=== PATIENT | male | born 1965 | race Caucasian/White ===

== ENCOUNTER 2019-10-23 09:19 | Emergency (ER) | payer BC ==
[2019-10-23 09:33] VITALS: BP 150/101; PULSE 71
--- NOTE | 2019-10-23 10:31 | EDM.PDOC ---
<QuincyAngelica - Last Filed: 10/23/19 10:22> ED HPI GENERAL MEDICAL PROBLEM - General Chief Complaint: ENT Problem Stated Complaint: NOSE BLEED Time Seen by Provider: 10/23/19 10:13 Source of Information: Reports: Patient History Limitations: Reports: No Limitations ( ) - History of Present Illness INITIAL COMMENTS - FREE TEXT/NARRATIVE: Patient is a pleasant 54-year-old male that is on long-term anti-coagulant therapy for previous stroke 15 years ago and presents to the ED today for bilateral nose bleed that started this morning at 0810. He reports he was at work when he thought his nose running so he wiped it on his arm because he had gloves on and saw it was blood. Then the blood started "gushing" out of his nose. He reports it was bright red. He reports he pinched his nose and this would stop the blood from coming out, but then he could feel it draining down the back of his throat. He notes that if he let go of his nose the blood would pour out. He states that the bleeding ceased around 0930 while in the ED. The nurse had him blow his nose and when he did he reports there were multiple dark clots. He denies any bleeding since 0930. He states he just feels "foggy" or that something is different, but he can't explain it very well. He denies chest pain, shortness of breath, dizziness, and lightheadedness. Onset: Sudden Onset Date: 10/23/19 Onset Time: 08:10 Duration: Improving - Related Data Allergies Allergy/AdvReac Type Severity Reaction Status Date / Time No Known Allergies Allergy Verified 10/23/19 09:33 Home Meds: Home Meds Rivaroxaban [Xarelto] 10 mg PO DAILY 07/05/14 [History] Insulin Aspart [NovoLOG] 20 unit PO DAILY 06/26/18 [History] Insulin Lispro [Humalog] 0 unit INJECT ASDIRECTED 06/26/18 [History] LORazepam [Ativan] 0.5 mg PO BEDTIME 06/26/18 [History] Lisinopril/Hydrochlorothiazide [Lisinopril-Hctz 20-12.5 mg Tab] 1 tab PO DAILY 06/26/18 [History] atorvaSTATin [Lipitor] 10 mg PO BEDTIME 06/26/18 [History] Aspirin [Halfprin] 81 mg PO DAILY 10/23/19 [History] Past Medical History Cardiovascular History: Reports: High Cholesterol, Hypertension Musculoskeletal History: Reports: Other (See Below) Other Musculoskeletal History: back surgery Neurological History: Reports: CVA Other Neuro History: right side weakness Endocrine/Metabolic History: Reports: Diabetes, Type II - Past Surgical History Cardiovascular Surgical History: Reports: Coronary Artery Bypass Musculoskeletal Surgical History: Reports: Shoulder Surgery Social & Family History - Tobacco Use Smoking Status *Q: Never Smoker - Caffeine Use Caffeine Use: Reports: Coffee - Recreational Drug Use Recreational Drug Use: No ED ROS ENT - Review of Systems Review Of Systems: See Below Constitutional: Reports: No Symptoms. Denies: Fever, Chills HEENT: Reports: Nosebleed (has stopped now but was bleeding from both nares for 90 minutes). Denies: Throat Pain Respiratory: Reports: No Symptoms. Denies: Shortness of Breath, Cough Cardiovascular: Reports: No Symptoms. Denies: Chest Pain, Lightheadedness, Syncope GI/Abdominal: Reports: No Symptoms. Denies: Abdominal Pain, Nausea Skin: Reports: No Symptoms. Denies: Pallor Neurological: Reports: Other (Feels "foggy"). Denies: Headache, Numbness, Syncope, Tingling, Weakness Psychiatric: Reports: No Symptoms Hematologic/Lymphatic: Reports: Easy Bleeding (due to being on long-term Xarelto and Aspirin) ED EXAM, ENT - Physical Exam Exam: See Below Exam Limited By: No Limitations General Appearance: Alert, WD/WN, No Apparent Distress Nose: Active Bleeding (left nare- cauterized with silver nitrate stick), Dried Blood. No: Nasal Tenderness, Septal Hematoma Mouth/Throat: Normal Inspection, Normal Gums, Normal Lips, Other (trace amount of blood in back of throat) Head: Atraumatic, Normocephalic Respiratory/Chest: No Respiratory Distress, Lungs Clear, Normal Breath Sounds, No Accessory Muscle Use, Chest Non-Tender Cardiovascular: Normal Peripheral Pulses, Regular Rate, Rhythm, No Edema, No Murmur GI/Abdominal: Normal Bowel Sounds, Soft, Non-Tender, No Organomegaly, No Distention, No Mass Neurological: Alert, Oriented, Normal Cognition, No Motor/Sensory Deficits Psychiatric: Normal Affect, Normal Mood Skin: Warm, Dry, Intact, Normal Color, No Rash Course - Vital Signs Last Recorded V/S: Last Vital Signs Temp 96.7 F L 10/23/19 09:31 Pulse 71 10/23/19 09:31 Resp 18 10/23/19 09:31 BP 150/101 H 10/23/19 09:31 Pulse Ox 94 L 10/23/19 09:31 Departure - Departure Disposition: Home, Self-Care 01 Clinical Impression: Epistaxis - Discharge Information Referrals: Mishel Vicente NP [Primary Care Provider] - Forms: ED Department Discharge, ED Return to Work/School Form Additional Instructions: Do not take your aspirin for 5 days. Put antibiotic ointment or petroleum jelly in each nostril a couple times per day to keep your nose moist. Please return if you are worse. Sepsis Event Note - Evaluation Sepsis Screening Result: No Definite Risk - Focused Exam Vital Signs: Vital Signs Temp Pulse Resp BP Pulse Ox 10/23/19 09:31 96.7 F L 71 18 150/101 H 94 L Date Exam was Performed: 10/23/19 Time Exam was Performed: 10:22 <Duncan Saha - Last Filed: 10/23/19 10:47> ED ENT PROCEDURES - Epistaxis Procedure Indication: Epistaxis Recent anticoagulants/antiplatlets: Yes Uncontrolled HTN: No Recent septal/nasal surgery: No Site of bleeding: Left Nare Clearing of clots: Patient Blew Nose Chemical cautery: Silver Nitrate Topical Complications: No Course - Re-Assessments/Exams Free Text/Narrative Re-Assessment/Exam: 10/23/19 10:44 I examined the patient myself and I agree with Angelica's assessment and plan. I used some silver nitrate to stop a very small bleeder. The patient is on xarelto and aspirin. I will have him hold the aspirin for 5 days. I put some antibiotic ointment in each nostril. Departure - Departure Time of Disposition: 10:50 Condition: Good - Discharge Information *PRESCRIPTION DRUG MONITORING PROGRAM REVIEWED*: Not Applicable *COPY OF PRESCRIPTION DRUG MONITORING REPORT IN PATIENT QUITA: Not Applicable Sepsis Event Note - Focused Exam Date Exam was Performed: 10/23/19 Time Exam was Performed: 10:44
== END 2019-10-23 10:58 | disposition home or self-care (01) ==
LOC: JD.ED 09:19
DX: R04.0 Epistaxis (principal); E78.00 Pure hypercholesterolemia, unspecified; I10 Essential (primary) hypertension; E11.9 Type 2 diabetes mellitus without complications; Z86.73 Personal history of transient ischemic attack (TIA), and cerebral infarction without residual deficits; Z79.01 Long term (current) use of anticoagulants; Z79.4 Long term (current) use of insulin; Z79.899 Other long term (current) drug therapy; Z79.82 Long term (current) use of aspirin
CPT/HCPCS: 30901; 99282; 99283-25

== ENCOUNTER 2019-12-01 09:39 | Emergency (ER) | payer BC ==
--- NOTE | 2019-12-01 09:58 | EDM.PDOC ---
ED HPI GENERAL MEDICAL PROBLEM - General Chief Complaint: Upper Extremity Injury/Pain Stated Complaint: LT HAND INJURY Time Seen by Provider: 12/01/19 09:48 - History of Present Illness INITIAL COMMENTS - FREE TEXT/NARRATIVE: 54-year-old male presents the emergency room with a left hand injury. Yesterday evening the patient was moving a heavy bottle of water that was above his head and he lost control of it in his left hand was supporting the water bottle but landed on a irregular plastic surface with the weight of his hand and a heavy water bottle. He is developed significant discomfort in his hand mostly over the index and middle rays at the level of the metacarpals. He has some mild tingling in his fingers and this seems to involve all digits. The patient has tried Tylenol and ibuprofen without any benefit. I have cautioned the patient about using ibuprofen at his age and with his underlying heart disease and he is on Xarelto. Patient denies any other injury with this unfortunate mishap Left Hand Pain Score (Numeric/FACES): 8 - Related Data Allergies Allergy/AdvReac Type Severity Reaction Status Date / Time No Known Allergies Allergy Verified 12/01/19 09:49 Home Meds: Home Meds Rivaroxaban [Xarelto] 10 mg PO DAILY 07/05/14 [History] Insulin Aspart [NovoLOG] 20 unit PO DAILY 06/26/18 [History] Insulin Lispro [Humalog] 0 unit INJECT ASDIRECTED 06/26/18 [History] LORazepam [Ativan] 0.5 mg PO BEDTIME 06/26/18 [History] Lisinopril/Hydrochlorothiazide [Lisinopril-Hctz 20-12.5 mg Tab] 1 tab PO DAILY 06/26/18 [History] atorvaSTATin [Lipitor] 10 mg PO BEDTIME 06/26/18 [History] Aspirin [Halfprin] 81 mg PO DAILY 10/23/19 [History] Acetaminophen/HYDROcodone [Stringer 325-5 MG] 1 - 2 tab PO Q6H PRN #15 tablet 11/30 [Rx] Past Medical History Cardiovascular History: Reports: High Cholesterol, Hypertension Musculoskeletal History: Reports: Other (See Below) Other Musculoskeletal History: back surgery Neurological History: Reports: CVA Other Neuro History: right side weakness Endocrine/Metabolic History: Reports: Diabetes, Type II - Past Surgical History Cardiovascular Surgical History: Reports: Coronary Artery Bypass Musculoskeletal Surgical History: Reports: Shoulder Surgery Social & Family History - Caffeine Use Caffeine Use: Reports: Coffee Review of Systems - Review of Systems Review Of Systems: See Below Constitutional: Reports: No Symptoms Respiratory: Reports: No Symptoms Cardiovascular: Reports: No Symptoms GI/Abdominal: Reports: No Symptoms Genitourinary: Reports: No Symptoms Musculoskeletal: Reports: Hand Pain Neurological: Reports: Other (Tingling in his digits of the left hand) ED EXAM, GENERAL - Physical Exam Exam: See Below Exam Limited By: No Limitations General Appearance: Alert, No Apparent Distress Head: Atraumatic, Normocephalic Neck: Normal Inspection, Supple, Non-Tender, Full Range of Motion. No: Lymphadenopathy (L), Lymphadenopathy (R) Respiratory/Chest: No Respiratory Distress, Lungs Clear, Normal Breath Sounds Cardiovascular: Regular Rate, Rhythm, No Edema, No Murmur Extremities: Other (Patient is left hand shows no obvious deformity. He has some swelling over the metacarpal phalangeal joints of the index and middle rays and to a lesser degree the fourth ray. Patient has difficulty flexing or extending his digits due to discomfort and pain. Patient does not seem to have a lot of discomfort with palpation of the proximal hand and wrist patient has intact supination and pronation of the forearm and the patient can fully extend his arm at the level of the elbow. The patient has good flexion extension of his wrist but he does get some discomfort into his digits. Palpation of the digits show some minimal swelling especially in the proximal area. Neurovascular status is intact however he has this vague sensation of partial numbness in all 5 digits capillary refill is normal.) Course - Vital Signs Last Recorded V/S: Last Vital Signs Temp 36.6 C 12/01/19 09:47 Pulse 78 12/01/19 09:47 Resp 18 12/01/19 09:47 BP 134/95 H 12/01/19 09:47 Pulse Ox 98 12/01/19 09:47 - Orders/Labs/Meds Orders: Active Orders 24 hr Category Date Time Status Hand Comp Min 3V Lt [CR] Stat Exams 12/01/19 09:58 Taken - Re-Assessments/Exams Free Text/Narrative Re-Assessment/Exam: 12/01/19 10:20 X-ray examination of the left hand is negative for acute fracture dislocations has mild soft tissue swelling in the affected areas. He has some degenerative changes noted throughout. Discussed treatment plans with the patient we will not splint him at this point. He is to use Tylenol or Stringer as needed for pain. He should seek reevaluation in 48 hours if not improving and certainly sooner if getting worse. With the pain the patient is having at this point is possible to exclude a tendon injury however the patient seems to have intact flexion and extension of his digits at the metacarpophalangeal joints but this is limited due to discomfort further testing is not practical at this point. Departure - Departure Time of Disposition: 10:32 Disposition: Home, Self-Care 01 Clinical Impression: Contusion of left hand including fingers - Discharge Information Prescriptions: Acetaminophen/HYDROcodone [Stringer 325-5 MG] 1 - 2 tab PO Q6H PRN #15 tablet PRN Reason: Pain Referrals: Mishel Vicente NP [Primary Care Provider] - Forms: ED Department Discharge Additional Instructions: Turn to the emergency room with any questions problems or worsening symptoms. Follow-up with your regular provider in 2 to 3 days for reevaluation. Use Tylenol as needed for the discomfort. Do not exceed 3000 to 4000 mg in a 24-hour period. The pain medication the Stringer you were given each tablet contains 325 mg of Tylenol and this needs to be factored in. The Stringer only as needed for pain. Allow 12 hours after using this medication before driving or returning to work. Sepsis Event Note - Focused Exam Vital Signs: Vital Signs Temp Pulse Resp BP Pulse Ox 12/01/19 09:47 36.6 C 78 18 134/95 H 98 Date Exam was Performed: 12/01/19 Time Exam was Performed: 10:19 - My Orders Last 24 Hours: My Active Orders 12/01/19 09:58 Hand Comp Min 3V Lt [CR] Stat - Assessment/Plan Last 24 Hours: My Active Orders 12/01/19 09:58 Hand Comp Min 3V Lt [CR] Stat
[2019-12-01] MEDS ORDERED: Acetaminophen/HYDROcodone 325-5 MG Tab PO ONE (10:37)
[2019-12-01 11:07] VITALS: BP 131/85; PULSE 64
--- NOTE | 2019-12-02 07:38 | CR ---
Left hand: 4 views of the left hand were obtained. Comparison: No prior hand exam is available. Joint spaces are preserved. Small bony density is noted off the navicular bone compatible with old injury. Vascular calcification is noted within the wrist. No acute fracture or other bony abnormality is appreciated. Impression: 1. Vascular calcification within the wrist. Old injury within the wrist. 2. Left hand exam is otherwise unremarkable. Diagnostic code #2 This report was dictated in MDT
== END 2019-12-01 11:03 | disposition home or self-care (01) ==
LOC: JD.ED 09:39
DX: S60.222A Contusion of left hand, initial encounter (principal); I10 Essential (primary) hypertension; E11.9 Type 2 diabetes mellitus without complications; E78.00 Pure hypercholesterolemia, unspecified; Z86.73 Personal history of transient ischemic attack (TIA), and cerebral infarction without residual deficits; Z79.82 Long term (current) use of aspirin; Z79.899 Other long term (current) drug therapy; Z79.4 Long term (current) use of insulin; Z79.01 Long term (current) use of anticoagulants; W20.8XXA Other cause of strike by thrown, projected or falling object, initial encounter
CPT/HCPCS: 73130; 99283; A9270

== ENCOUNTER 2022-09-06 14:40 | Emergency (ER) | payer BC, OTHER ==
[2022-09-06] MEDS ORDERED: HYDROmorphone 1 MG/ML Syringe IM ONE (16:15)
[2022-09-06 17:51] VITALS: BP 130/75; PULSE 89
== END 2022-09-06 17:35 | disposition home or self-care (01) ==
LOC: JD.ED 14:40
DX: S46.001A Unspecified injury of muscle(s) and tendon(s) of the rotator cuff of right shoulder, initial encounter (principal); E78.00 Pure hypercholesterolemia, unspecified; I10 Essential (primary) hypertension; E11.9 Type 2 diabetes mellitus without complications; Z86.73 Personal history of transient ischemic attack (TIA), and cerebral infarction without residual deficits; Z95.1 Presence of aortocoronary bypass graft; Z79.82 Long term (current) use of aspirin; Z79.01 Long term (current) use of anticoagulants; Z79.4 Long term (current) use of insulin; Z79.899 Other long term (current) drug therapy; W01.0XXA Fall on same level from slipping, tripping and stumbling without subsequent striking against object, initial encounter; Y99.0 Civilian activity done for income or pay
CPT/HCPCS: 73030-26-RT; 73030-RT; 96372; 99283; J1170

== ENCOUNTER 2022-11-30 17:23 | Emergency (ER) | payer BC ==
[2022-11-30 17:37] VITALS: BP 148/83; PULSE 96
[2022-11-30 19:11] LABS: CORONAVIRUS COVID-19 NAA NEGATIVE (NEGATIVE)
== END 2022-11-30 19:45 | disposition home or self-care (01) ==
LOC: JD.ED 17:23
DX: R07.89 Other chest pain (principal); E78.00 Pure hypercholesterolemia, unspecified; I10 Essential (primary) hypertension; E11.9 Type 2 diabetes mellitus without complications; Z86.73 Personal history of transient ischemic attack (TIA), and cerebral infarction without residual deficits; Z79.01 Long term (current) use of anticoagulants; Z79.82 Long term (current) use of aspirin; Z79.4 Long term (current) use of insulin; Z79.899 Other long term (current) drug therapy; Z20.822 Contact with and (suspected) exposure to COVID-19
CPT/HCPCS: 0240U; 36415; 71045; 80053; 83880; 84484; 85025; 85379; 93005; 99285; 93010; 99283

== ENCOUNTER 2024-02-01 08:56 | Emergency (ER) | payer BC ==
[2024-02-01 09:41] LABS: APPEARANCE,URINE CLOUDY (Clear); BILIRUBIN,URINE 1+ (Negative); COLOR,URINE RED (Yellow); GLUCOSE,URINE NEGATIVE (Negative); KETONES,URINE TRACE (Negative); LEUKOCYTE ESTERASE,URINE TRACE (Negative); NITRITE,URINE NEGATIVE (Negative); OCCULT BLOOD,URINE 3+ (Negative); PROTEIN,URINE 3+ (Negative)
[2024-02-01 09:50] LABS: BACTERIA,URINE FEW /hpf (FEW); EPITHELIAL CELLS,URINE 0-5 /hpf (0-5); RBC,URINE >100 /hpf (0-5)
[2024-02-01 09:51] LABS: AMPHETAMINES SCREEN, URINE NEGATIVE (CUTOFF=500); BARBITURATE SCREEN,URINE NEGATIVE (CUTOFF=200); BENZODIAZEPINES SCREEN,URINE NEGATIVE (CUTOFF=150); BUPRENORPHINE SCREEN,URINE NEGATIVE (CUTOFF=10); METHADONE SCREEN, URINE NEGATIVE (CUT0FF=200); METHAMPHETAMINES SCREEN, URINE NEGATIVE (CUTOFF=500); MUCUS,URINE FEW /hpf (FEW); OXYCODONE SCREEN,URINE NEGATIVE (CUT0FF=100); THC SCREEN,URINE 20 NG/ML NEGATIVE (CUTOFF=50)
[2024-02-01] MEDS: Sodium Chloride 0.9% 1,000 ML IV ONE (10:00)
[2024-02-01] MEDS: Morphine 2 MG/ML SYRINGE IVPUSH ONE (10:00)
[2024-02-01] MEDS: Ondansetron 4 MG/2 ML SDV IVPUSH ONE (10:00)
[2024-02-01 10:05] LABS: BASOPHILS ABSOLUTE AUTO 0.1 K/mm3 (0.0-0.2); BASOPHILS PERCENT AUTO 0.7 % (0.0-1.0); EOSINOPHILS ABSOLUTE AUTO 0.3 K/mm3 (0.0-0.4); EOSINOPHILS PERCENT AUTO 2.4 % (0.0-6.0); HEMATOCRIT 41.1 % (42.0-52.0); HEMOGLOBIN 14.3 gm/dl (14.0-18.0); IMMATURE GRAN ABSOLUTE AUTO 0.03 K/mm3 (0.00-0.05); IMMATURE GRAN PERCENT AUTO 0.3 % (0.0-0.4); LYMPHOCYTES ABSOLUTE AUTO 2.4 K/mm3 (1.0-4.8); MEAN CORPUSCULAR HEMOGLOBIN 29.8 pg (28.0-32.0); MEAN CORPUSCULAR HGB CONC 34.8 g/dl (32.0-36.0); MEAN CORPUSCULAR VOLUME 85.6 fl (83.0-99.0); MEAN PLATELET VOLUME 10.2 fl (9.4-12.4); MONOCYTES ABSOLUTE AUTO 0.8 K/mm3 (0.0-0.8); MONOCYTES PERCENT AUTO 7.1 % (0.0-8.0); NEUTROPHILS PERCENT AUTO 66.5 % (41.0-71.0); PLATELET COUNT,PLT 162 K/mm3 (150-400); WHITE BLOOD CELL COUNT,WBC 10.51 K/mm3 (3.9-11.3)
[2024-02-01] MEDS: cefTRIAXone 1 GM in Sodium Chloride 0.9% 100 ML IV ONE (11:03)
[2024-02-01 11:07] LABS: INR 1.17; PROTHROMBIN TIME 12.4 SECONDS (9.7-12.0)
[2024-02-01 11:08] LABS: PTT,PARTIAL THROMBOPLSTIN TIME 34.8 SECONDS (21.7-31.4)
[2024-02-01 11:23] LABS: A/G RATIO 1.2 (1-2); ALANINE AMINOTRANSFERASE,ALT 49 U/L (16-63); ALBUMIN 3.8 g/dl (3.4-5.0); ALKALINE PHOSPHATASE 108 U/L (46-116); ANION GAP 11.9 (5-15); ASPARTATE AMNIOTRANSFERASE,AST 24 U/L (15-37); BILIRUBIN TOTAL 0.9 mg/dL (0.2-1.0); BLOOD UREA NITROGEN,BUN 17 mg/dL (7-18); BUN/CREATININE RATIO 14.2 (14-18); CALCIUM 9.3 mg/dL (8.5-10.1); CARBON DIOXIDE,CO2 27 mEq/L (21-32); CHLORIDE,CL 102 mEq/L (98-107); CREATININE 1.2 mg/dL (0.7-1.3); ESTIMATED GFR 70 mL/min (>60); GLUCOSE RANDOM 166 mg/dL (70-99); LIPASE 26 U/L (16-77); MAGNESIUM 1.5 mg/dL (1.8-2.4); PHOSPHORUS 3.8 mg/dL (2.6-4.7); POTASSIUM,K 3.9 mEq/L (3.5-5.1); SODIUM,NA 137 mEq/L (136-145)
[2024-02-01] MEDS: Ketorolac 30 MG/ML SDV IVPUSH ONE (12:25)
[2024-02-01 13:05] VITALS: BP 120/85; PULSE 57
== END 2024-02-01 12:55 | disposition home or self-care (01) ==
LOC: JD.ED 08:56
DX: N20.0 Calculus of kidney (principal); N39.0 Urinary tract infection, site not specified; J18.9 Pneumonia, unspecified organism; E78.00 Pure hypercholesterolemia, unspecified; I10 Essential (primary) hypertension; E11.9 Type 2 diabetes mellitus without complications; Z79.4 Long term (current) use of insulin; Z79.899 Other long term (current) drug therapy
CPT/HCPCS: 36415; 74176; 80053; 80306; 81001; 81003; 83605; 83690; 83735; 84100; 85025; 85610; 85730; 87086; 96361; 96365; 96375; 99284; J0696; J1885; J2270; J2405; J3490; J7030

== ENCOUNTER 2024-06-26 11:21 | Inpatient (IN) | payer BC ==
[2024-06-26] MEDS ORDERED: Sodium Chloride 0.9% 10 ML Syringe FLUSH PRN (11:37)
[2024-06-26 11:47] LABS: BASOPHILS ABSOLUTE AUTO 0.1 K/mm3 (0.0-0.2); BASOPHILS PERCENT AUTO 0.8 % (0.0-1.0); EOSINOPHILS ABSOLUTE AUTO 0.3 K/mm3 (0.0-0.4); HEMATOCRIT 38.6 % (42.0-52.0); HEMOGLOBIN 13.3 gm/dl (14.0-18.0); IMMATURE GRAN ABSOLUTE AUTO 0.03 K/mm3 (0.00-0.05); IMMATURE GRAN PERCENT AUTO 0.3 % (0.0-0.4); LYMPHOCYTES ABSOLUTE AUTO 2.9 K/mm3 (1.0-4.8); LYMPHOCYTES PERCENT AUTO 31.1 % (24.0-44.0); MEAN CORPUSCULAR HEMOGLOBIN 28.7 pg (28.0-32.0); MEAN CORPUSCULAR HGB CONC 34.5 g/dl (32.0-36.0); MEAN CORPUSCULAR VOLUME 83.4 fl (83.0-99.0); MEAN PLATELET VOLUME 10.2 fl (9.4-12.4); MONOCYTES ABSOLUTE AUTO 0.6 K/mm3 (0.0-0.8); MONOCYTES PERCENT AUTO 6.8 % (0.0-8.0); NEUTROPHILS ABSOLUTE AUTO 5.3 K/mm3 (1.8-7.7); PLATELET COUNT,PLT 163 K/mm3 (150-400); RED BLOOD CELL COUNT 4.63 M/mm3 (4.52-5.90); WHITE BLOOD CELL COUNT,WBC 9.22 K/mm3 (3.9-11.3)
[2024-06-26] MEDS: Iopamidol 755 Mg/ML 100 ML Bottle IVPUSH ONE (11:50)
[2024-06-26] MEDS: Sodium Chloride 0.9% 10 ML Syringe FLUSH PRN (11:50)
[2024-06-26] MEDS: Sodium Chloride 0.9% 100 ML IV SCH (11:50)
[2024-06-26 12:26] LABS: A/G RATIO 1.3 (1-2); ALBUMIN 3.9 g/dl (3.4-5.0); ANION GAP 16.5 (5-15); BILIRUBIN TOTAL 0.9 mg/dL (0.2-1.0); BUN/CREATININE RATIO 13.6 (14-18); CALCIUM 9.2 mg/dL (8.5-10.1); CREATININE 1.1 mg/dL (0.7-1.3); EST CRCL DRUG DOSING (CG) 62.9 mL/min; MAGNESIUM 1.7 mg/dL (1.8-2.4); POTASSIUM,K 4.5 mEq/L (3.5-5.1)
[2024-06-26 12:51] LABS: PROTHROMBIN TIME 10.6 SECONDS (9.7-12.0)
[2024-06-26 12:52] LABS: PTT,PARTIAL THROMBOPLSTIN TIME 28.2 SECONDS (21.7-31.4)
[2024-06-26 13:52] LABS: APPEARANCE,URINE CLEAR (Clear); BILIRUBIN,URINE NEGATIVE (Negative); COLOR,URINE YELLOW (Yellow); GLUCOSE,URINE NEGATIVE (Negative); KETONES,URINE NEGATIVE (Negative); LEUKOCYTE ESTERASE,URINE NEGATIVE (Negative); NITRITE,URINE NEGATIVE (Negative); OCCULT BLOOD,URINE NEGATIVE (Negative); PROTEIN,URINE NEGATIVE (Negative); UROBILINOGEN,URINE 0.2 (0.2-1.0)
[2024-06-26] MEDS: atorvaSTATin 40 MG Tab PO ONE ×2 (14:06→18:57)
[2024-06-26] MEDS: Aspirin 81 MG Tab.Chew PO ONE (14:06)
[2024-06-26] MEDS: Sodium Chloride 0.9% 500 ML IV SCH (14:06)
[2024-06-26] MEDS: Meclizine 25 MG Tab PO ONE (14:09)
[2024-06-26] MEDS: Acetaminophen 325 MG Tab PO ONE (14:09)
[2024-06-26] MEDS: Ondansetron 4 MG/2 ML SDV IVPUSH ONE (14:09)
[2024-06-26] MEDS ORDERED: Polyethylene Glycol 3350 Powder 17 GM Packet PO PRN (15:17)
[2024-06-26] MEDS ORDERED: Melatonin 3 MG Tab PO PRN (15:17)
[2024-06-26] MEDS ORDERED: hydrALAZINE 20 MG/ML SDV IVPUSH PRN (15:20)
[2024-06-26] MEDS: Acetaminophen 325 MG Tab PO PRN (17:06)
[2024-06-26 17:42] LABS: HEMOGLOBIN A1C 8.6 %
[2024-06-26] MEDS ORDERED: 50% Dextrose in Water 50 ML Syringe IVPUSH PRN (18:07)
[2024-06-26 18:17] LABS: TSH 0.935 uIU/mL (0.358-3.74)
[2024-06-26] MEDS: Sodium Chloride 0.9% 1,000 ML IV SCH (18:57)
[2024-06-26] MEDS: Ondansetron 4 MG Tab.DIS PO PRN (18:59)
[2024-06-26] MEDS: Insulin Lispro 100 Unit/ML 3 ML KwikPen SUBCUT SCH (21:49)
[2024-06-27] MEDS: Sodium Chloride 0.9% 500 ML IV ONE (02:54)
[2024-06-27 05:32] LABS: HEMATOCRIT 35.1 % (42.0-52.0); HEMOGLOBIN 12.1 gm/dl (14.0-18.0); MEAN CORPUSCULAR HEMOGLOBIN 29.2 pg (28.0-32.0); MEAN CORPUSCULAR HGB CONC 34.5 g/dl (32.0-36.0); MEAN CORPUSCULAR VOLUME 84.8 fl (83.0-99.0); MEAN PLATELET VOLUME 11.1 fl (9.4-12.4); PLATELET COUNT,PLT 141 K/mm3 (150-400); RED BLOOD CELL COUNT 4.14 M/mm3 (4.52-5.90); WHITE BLOOD CELL COUNT,WBC 5.53 K/mm3 (3.9-11.3)
[2024-06-27 05:33] LABS: ANION GAP 13.9 (5-15); CALCIUM 8.2 mg/dL (8.5-10.1); EST CRCL DRUG DOSING (CG) 69.19 mL/min; POTASSIUM,K 3.9 mEq/L (3.5-5.1)
[2024-06-27 06:10] VITALS: BP 147/71; PULSE 56
[2024-06-27] MEDS ORDERED: Insulin Lispro 100 Unit/ML 3 ML KwikPen SUBCUT SCH (07:00)
[2024-06-27] MEDS: Aspirin 81 MG Tab.EC PO SCH (08:11)
[2024-06-27] MEDS: Ezetimibe 10 MG Tab PO SCH (08:11)
[2024-06-27] MEDS: S PO SCH (08:11)
[2024-06-27] MEDS: Insulin Glargine,Human Rec. Analog 100 Units/ML 3 ML Pen SUBCUT SCH (10:43)
[2024-06-27] MEDS: Gadobenate Dimeglumine 529 MG/ML 20 ML SDV IVPUSH ONE (12:36)
[2024-06-27] MEDS: Sodium Chloride 0.9% 10 ML Syringe FLUSH PRN (12:36)
[2024-06-27] MEDS: Sodium Chloride 0.9% 10 ML Syringe FLUSH ONE (12:43)
[2024-06-27] MEDS: Acetaminophen/HYDROcodone 325-5 MG Tab PO PRN (12:43)
[2024-06-27] MEDS: Rivaroxaban 10 MG Tab PO SCH (15:34)
[2024-06-28] MEDS ORDERED: atorvaSTATin 40 MG Tab PO SCH (09:00)
== END 2024-06-27 18:30 | disposition home or self-care (01) | DRG 47 ==
LOC: JD.ED 11:21 → JD.MS 15:17 → EEVIPCON 15:17
PROVIDERS: ADMIT Family Medicine; ATTEND Family Medicine
DX: G45.9 Transient cerebral ischemic attack, unspecified (principal); E78.00 Pure hypercholesterolemia, unspecified; I10 Essential (primary) hypertension; J45.909 Unspecified asthma, uncomplicated; E11.65 Type 2 diabetes mellitus with hyperglycemia; H54.7 Unspecified visual loss; R07.9 Chest pain, unspecified; I25.10 Atherosclerotic heart disease of native coronary artery without angina pectoris; Z79.01 Long term (current) use of anticoagulants; Z79.82 Long term (current) use of aspirin; Z79.899 Other long term (current) drug therapy; Z79.4 Long term (current) use of insulin; Z98.890 Other specified postprocedural states; Z95.1 Presence of aortocoronary bypass graft
CPT/HCPCS: 36415; 70450; 70450-26; 70496; 70496-26; 70498; 70498-26; 70553; 70553-26; 71045; 71045-26; 80048; 80053; 80061; 81003; 82607; 82947; 83036; 83735; 84443; 84484; 85025; 85027; 85610; 85730; 93005; 93010; 93306; 99285; A9270-GY; A9577; J1815; J1815-GY; J2405; J3490; J7030; J7040; Q9967